=== PATIENT | male | born 1980 | race Caucasian/White ===

== ENCOUNTER 2017-01-14 17:19 | Emergency (ER) | payer MEDICAID ==
[~2017-01-14] VITALS: Wt 79.5 kg
[2017-01-14] MEDS ORDERED: KETOROLAC 30 MG INJ IM STA (18:21)
[2017-01-14] MEDS ORDERED: CYCL-319 PO (18:22)
[2017-01-14] MEDS ORDERED: NAPR-260 PO (18:23)
[2017-01-14] MEDS ORDERED: CYCLOBENZAPRINE 10 MG TAB PO ONE (18:30)
--- NOTE | 2017-01-14 18:57 | ERD ---
ER Documentation Chief Complaint Date/Time DATE: 01/14/17 TIME: 18:54 Chief Complaint BACK/NECK PAIN, ONSET 1 DAY AFTER BENDING HPI This patient is a 36-year-old male presenting to the emergency department with complaints of bilateral mid back pain which started yesterday after bending over and standing up suddenly. The patient did not hear a pop or crack. Alleviating factors include a topical cream for pain. He has taken no medication orally for symptoms. He denies loss of bowel or bladder function, fevers, chills, dizziness, syncope, or other symptoms. ROS All systems reviewed and are negative except as per history of present illness. Medications Home Meds Active Scripts Naproxen* (Naprosyn*) 500 Mg Tablet, 500 MG PO BID Y for PAIN AND/OR INFLAMMATION, #30 TAB Prov:SIOBHAN MCKINLEY PA-C 01/14/17 Cyclobenzaprine Hcl* (Cyclobenzaprine Hcl*) 10 Mg Tablet, 10 MG PO TID, #15 TAB Prov:SIOBHAN MCKINLEY PA-C 01/14/17 Allergies Allergies: Uncoded Allergies: PCN (Allergy, Unknown, HIVES, 01/14/17) PMhx/Soc Medical and Surgical Hx: pt denies Medical Hx, pt denies Surgical Hx History of Surgery: No Anesthesia Reaction: No Hx Neurological Disorder: No Hx Respiratory Disorders: No Hx Cardiac Disorders: No Hx Psychiatric Problems: No Hx Miscellaneous Medical Probl: No Hx Alcohol Use: Yes (once a week) Hx Substance Use: No Hx Tobacco Use: No Smoking Status: Never smoker Physical Exam Vitals Vital Signs Date Time Temp Pulse Resp B/P Pulse Ox O2 Delivery O2 Flow Rate FiO2 01/14/17 17:21 98.5 71 18 158/93 99 Physical Exam Const: Nontoxic, well-appearing male in no acute distress. Head: Atraumatic Eyes: Normal Conjunctiva ENT: Normal External Ears, Nose and Mouth. Neck: Full range of motion..~ No meningismus. Resp: Clear to auscultation bilaterally Cardio: Regular rate and rhythm, no murmurs Skin: No petechiae or rashes Back: No midline or flank tenderness. There is paraspinal tenderness to palpation of the mid back. No step-offs noted. Unable to complete straight leg raise bilaterally secondary to pain. Ext: No cyanosis, or edema Neur: Awake and alert Psych: Normal Mood and Affect Results 24 hrs Current Medications Medications (Trade) Dose Ordered Sig/Renny Route PRN Reason Start Time Stop Time Status Last Admin Dose Admin Ketorolac Tromethamine (Toradol) 30 mg ONCE STAT IM 01/14/17 18:21 01/14/17 18:23 DC Cyclobenzaprine HCl (Flexeril) 10 mg ONCE ONCE PO 01/14/17 18:30 01/14/17 18:31 DC Procedures/MDM 36-year-old male presents to the emergency department with complaints of back pain. He states he stood up suddenly yesterday and then experienced pain. He had no loss of bowel or bladder function and I have low suspicion for cauda equina, epidural abscess, or other emergent conditions. Imaging was not indicated at this time because there was no significant trauma. The patient was treated in the department with p.o. Flexeril and IM Toradol and he was feeling improved prior to discharge. He agreed with the discharge plan of diagnosis. He was instructed to follow-up with his primary care physician in the next 1-2 days. ER return precautions were discussed with the patient. Departure Diagnosis: Primary Impression: Back pain Back pain location: back pain in unspecified location Chronicity: acute Back pain laterality: unspecified Qualified Code: M54.9 - Acute back pain, unspecified back location, unspecified back pain laterality Condition: Fair Patient Instructions: Back Pain (Acute Or Chronic) [facility] Usted se turcios hecho un examen mdico de control que le indica que no est en nahid condicin que requiera tratamiento urgente en el Departamento de Emergencia. Un estudio ms profundo y el tratamiento de montgomery condicin pueden esperar sin ningn riesgo hasta que usted sea atendida/o en el consultorio de montgomery mdico o nahid cl luz elena. Es responsabilidad suya arreglar nahid mandie para el seguimiento del magaly. MANEJO DE CONDICIONES NO URGENTES EN EL FUTURO 1) Si usted tiene un mdico de atencin primaria: Usted debera llamar a montgomery mdico de atencin primaria antes de venir al departamento de emergencia. Despus de las horas de consultorio, montgomery doctor o montgomery asociado/a est disponible por telfono. El mdico o enfermero de dion en el servicio telefnico puede asesorarle por jovanni medio para atender el problema, o magaly contrario se puede programar nahid mandie. 2) Si usted no tiene un mdico de atencin primaria: Llame al mdico o clnica de referencia que aparece abajo jennie las horas de consultorio para hacer nahid mandie para que le vean. CLINICAS: [facility] [phone] [facility] [phone] [facility] [phone] [facility]. [place] [phone] [facility]. [place] [phone] [facility]. [phone] [address] Additional Instructions: No mas mejor en 2-3 maynard, regresar. Mas peor en 24 horas, regresear rapidamente. Ir a doctor primario in 5-7 maynard. Usar instrucciones cuando chico medicamento. SIOBHAN MCKINLEY PA-C Jan 14, 2017 18:57
== END 2017-01-14 19:45 | disposition home or self-care (01) ==
LOC: FTE 17:19
DX: M54.9 Dorsalgia, unspecified (principal)
CPT/HCPCS: 96372; J1885; Z7502; Z7610